=== PATIENT | male | born 1980 | race Caucasian/White ===

== ENCOUNTER 2018-12-04 01:48 | Emergency (ER) | payer OTHER ==
[2018-12-04 02:34] VITALS: BMI 22.4
--- NOTE | 2018-12-04 02:35 | PDOC ---
History of Present Illness - General Chief Complaint: Pain, Acute Stated Complaint: R HIP PAIN Time Seen by Provider: 12/04/18 02:34 History Source: Patient Exam Limitations: No Limitations - History of Present Illness Initial Comments: 12/04/18 03:29 CHIEF COMPLAINT: Lower back pain HISTORY OF PRESENT ILLNESS: 38-year-old male denies medical history presents emergency department with atraumatic right sided lower back pain for the past 3 days. Patient reports he was walking when he felt a sharp sensation his right lower back. Denies any radiation of the pain or neurosensory deficits. Denies any incontinence of bladder or bowel or any urinary retention. Denies saddle anesthesia, foot drop, history of cancer or IV drug use. REVIEW OF SYSTEMS: GENERAL: Afebrile, denies any weakness RESPIRATORY: No cough, wheezing, or hemoptysis. CARDIAC: No chest pain or shortness of breath MUSCULOSKELETAL: Pain to generalized lower back. No point tenderness. Pain worse on right than left. SKIN : No erythema, no bruising, no deformity. GI/: Denies any abdominal pain, no urinary difficulty, incontinence or urinary retention. RECTAL: Denies any difficulty this A.m. NEUROLOGICAL: Denies any numbness or tingling. No neurosensory deficits. PHYSICAL EXAM: GENERAL: The patient is awake, alert, and fully oriented, in no acute distress. RESPIRATORY: Lungs clear bilaterally, no rhonchi wheezes or crackles CARDIAC: S1-S2 audible, no murmur rub or gallop MUSCULOSKELETAL: Pain to generalized lower back, nonradiating, no tingling or sensory deficit. Less than 2 second cap refill, +2 pedal pulses. No spinal point tenderness. Normal reflexive and no deficits to sensation or strength. GI/: Abdomen soft, nontender, nondistended. No rebound tenderness. No masses palpable. RECTAL: Deferred patient with no neurological findings SKIN: Warm, Dry, normal turgor, no erythema, no edema no bruising. 12/05/18 04:37 Past History - Past Medical History Allergies/Adverse Reactions: Allergies Allergy/AdvReac Type Severity Reaction Status Date / Time No Known Allergies Allergy Verified 12/04/18 02:32 - Suicide/Smoking/Psychosocial Hx Smoking History: Current every day smoker Have you smoked in the past 12 months: Yes Information on smoking cessation initiated: No Hx Alcohol Use: Yes Drug/Substance Use Hx: Yes (Heroin) *Physical Exam - Vital Signs Last Vital Signs Temp Pulse Resp BP Pulse Ox 99 F 74 17 140/86 98 12/04/18 01:48 12/04/18 01:48 12/04/18 01:48 12/04/18 01:48 12/04/18 01:48 Medical Decision Making - Medical Decision Making 12/04/18 03:32 A/P: 38-year-old male with atraumatic right-sided lower back pain No point tenderness present No bony tenderness, crepitus or step-offs present No muscle spasms noted Able to perform straight leg raises Ambulatory with steady gait Neurovascular intact Given absence of urinary symptoms this is likely lumbago of the right lower back. Patient has no neurologic findings and denies history of drug abuse therefore spinal abscess is less likely. Toradol 60 mg IM now Reassess 12/04/18 04:46 Patient reports improvement of back pain. I will discharge home to follow-up with his primary doctor as needed. *DC/Admit/Observation/Transfer Diagnosis at time of Disposition: Lower back pain Qualifiers: Chronicity: acute Back pain laterality: right Sciatica presence: without sciatica Qualified Code(s): M54.5 - Low back pain - Discharge Dispostion Disposition: HOME Condition at time of disposition: Fair Decision to Admit order: No - Referrals - Patient Instructions Additional Instructions: REST. Take Tylenol or Motrin as needed for pain. Follow manufacturers instructions for appropriate dosage. Warm moist heat applied to your back may help alleviate pain. Return to emergency department for discoloration of the foot, numbness or tingling to the foot, worsening pain, or any other concerns. Thank you very much for choosing us to provide your emergent healthcare needs. - Post Discharge Activity
--- NOTE | 2018-12-04 02:44 | PDOC ---
*Physical Exam - Vital Signs Last Vital Signs Temp Pulse Resp BP Pulse Ox 99 F 74 17 140/86 98 12/04/18 01:48 12/04/18 01:48 12/04/18 01:48 12/04/18 01:48 12/04/18 01:48 Medical Decision Making - Medical Decision Making 12/04/18 02:44 Patient seen by the advanced practice provider under my direct supervision. Ancillary testing reviewed as necessary. I agree with plan as outlined by the advanced practice provider. *DC/Admit/Observation/Transfer Diagnosis at time of Disposition: Lower back pain Qualifiers: Chronicity: acute Back pain laterality: right Sciatica presence: without sciatica Qualified Code(s): M54.5 - Low back pain - Discharge Dispostion Disposition: HOME Condition at time of disposition: Fair - Referrals - Patient Instructions Additional Instructions: REST. Take Tylenol or Motrin as needed for pain. Follow manufacturers instructions for appropriate dosage. Warm moist heat applied to your back may help alleviate pain. Return to emergency department for discoloration of the foot, numbness or tingling to the foot, worsening pain, or any other concerns. Thank you very much for choosing us to provide your emergent healthcare needs. - Post Discharge Activity
[2018-12-04] MEDS ORDERED: KETOROLAC TROMETHAMINE 60 MG/2 ML VIAL IM ONE (03:28)
[2018-12-04] MEDS ORDERED: KETOROLAC TROMETHAMINE 60 MG/2 ML VIAL ONE (03:53)
[2018-12-04 06:43] VITALS: TEMP 98.2
[2018-12-04 08:45] VITALS: BP 133/60; PULSE 66
== END 2018-12-04 08:44 | disposition home or self-care (01) ==
LOC: JER 01:48
PROC: 3E0233Z Introduction of Anti-inflammatory into Muscle, Percutaneous Approach (ICD-10-PCS; principal; 2018-12-04)
DX: M54.5 Low back pain (principal)
CPT/HCPCS: 99282-25

== ENCOUNTER 2018-12-09 12:05 | Emergency (ER) | payer OTHER ==
[2018-12-09 12:31] VITALS: BMI 20.9
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
[2018-12-09] MEDS ORDERED: IBUPROFEN 600 MG TABLET (FP) PO ONE ×2 (14:11→14:17)
[2018-12-09 16:44] VITALS: BP 125/68; PULSE 68; TEMP 97.9
== END 2018-12-09 16:55 | disposition short-term general hospital (02) ==
LOC: JER 12:05
DX: S62.606D Fracture of unspecified phalanx of right little finger, subsequent encounter for fracture with routine healing (principal); Y04.0XXD Assault by unarmed brawl or fight, subsequent encounter; I10 Essential (primary) hypertension; F11.10 Opioid abuse, uncomplicated; F10.10 Alcohol abuse, uncomplicated; F31.9 Bipolar disorder, unspecified; F43.10 Post-traumatic stress disorder, unspecified; B18.2 Chronic viral hepatitis C; Z98.890 Other specified postprocedural states; Z59.0 Homelessness
CPT/HCPCS: 73110-TC-RT-FY; 73130-TC-RT-FY; 73523-TC-FY; 99282-25

== ENCOUNTER 2018-12-25 01:22 | Inpatient (IN) | payer OTHER ==
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
[2018-12-25] MEDS ORDERED: guaiFENesin 200 MG/10 ML 10 ML UNIT-DOSE CUPS PO PRN (03:15)
[2018-12-25] MEDS ORDERED: IBUPROFEN 400 MG TABLET (FP) PO PRN (03:15)
[2018-12-25] MEDS ORDERED: cloNIDine HCL 0.1 MG TABLET PO PRN (03:15)
[2018-12-25] MEDS ORDERED: MAGNESIUM CITRATE 300 ML BOTTLE PO PRN (03:15)
[2018-12-25] MEDS ORDERED: NALOXONE HCL 0.4 MG/ML VIAL IM PRN (03:15)
[2018-12-25] MEDS ORDERED: ONDANSETRON *ODT* 4 MG TABLET SL PRN (03:15)
[2018-12-25] MEDS ORDERED: MAG HYDROX/AL HYDROX/SIMETH 30 ML UNIT-DOSE CUP PO PRN (03:15)
[2018-12-25] MEDS ORDERED: BISMUTH SUBSALICYLATE 524 MG/30 ML UD PO PRN (03:15)
[2018-12-25] MEDS ORDERED: hydrOXYzine PAMOATE 25 MG CAPSULE (FP) PO PRN (03:15)
[2018-12-25] MEDS ORDERED: DICYCLOMINE HCL 10 MG CAPSULE PO PRN (03:15)
[2018-12-25] MEDS ORDERED: MAGNESIUM HYDROX 2400MG/30ML ORAL SUSPENSION 30 ML CUP PO PRN (03:15)
[2018-12-25] MEDS ORDERED: P-EPHED 60MG/TRIPROLIDI 2.5MG TABLET PO PRN (03:15)
[2018-12-25] MEDS ORDERED: MENTHOL/PHENOL 1 EACH UD MM PRN (03:15)
[2018-12-25] MEDS ORDERED: MELATONIN 5 MG TABLETS PO PRN (03:15)
[2018-12-25] MEDS ORDERED: METHOCARBAMOL 500 MG TABLET PO PRN (03:15)
[2018-12-25] MEDS ORDERED: NICOTINE POLACRILEX 2 MG GUM BUC PRN (03:15)
[2018-12-25] MEDS ORDERED: ACETAMINOPHEN 325 MG TABLET (FP) PO PRN ×2 (03:15)
[2018-12-25] MEDS ORDERED: METHADONE HCL 10 MG TABLET (FOR DETOX USE ONLY) PO ONE ×2 (07:15→10:00)
[2018-12-25] MEDS ORDERED: PRENATAL VITAMINS W/ FOLIC ACID TABLET (FP) PO SCH (10:00)
[2018-12-25] MEDS ORDERED: NICOTINE 21 MG/24 HOURS TOPICAL PATCH TD SCH (10:00)
[2018-12-25 10:28] LABS: HEMATOCRIT 41.7 % (35.4-49); HEMOGLOBIN 13.8 GM/dL (11.7-16.9); MCH 29.2 pg (25.7-33.7); MEAN CELL VOLUME 88.6 fl (80-96); MEAN PLT VOLUME 7.9 fl (7.5-11.1); RBC 4.71 M/mm3 (4.00-5.60); RDW 15.1 % (11.9-15.9); WHITE BLOOD COUNT 13.3 K/mm3 (4.0-10.0)
[2018-12-25 10:34] LABS: ALBUMIN 3.2 g/dl (3.4-5.0); BILIRUBIN,TOTAL 1.1 mg/dL (0.2-1); CALCIUM 8.9 mg/dL (8.5-10.1); CREATININE 0.8 mg/dL (0.55-1.3); POTASSIUM 3.8 mmol/L (3.5-5.1); TOT PROT 7.3 g/dl (6.4-8.2)
[2018-12-25 10:41] LABS: PLATELET COUNT 435 K/MM3 (134-434)
--- NOTE | 2018-12-25 12:21 | PN ---
[facility] COWS - Scale Resting Pulse: 1= [place] 81-100 Sweatin=Flushed/Facial Moisture Restless Observation: 1= Difficult to Sit Still Pupil Size: 0= Normal to Room Light Bone or Joint Aches: 2= Severe Diffuse Aches Runny Nose/ Eye Tearin= Runny Nose/Eyes GI Upset > 30mins: 1= Stomach Cramp Tremor Observation of Outstretched Hands: 1= Tremor [place], Not Seen Yawning Observation: 1= 1-2x During Session Anxiety or Irritability: 1=Feels Anxious/Irritable Goose Flesh Skin: 0=Smooth Skin COWS Score: 12 [facility] Progress Note (SOAP) Subjective: body aches sweats shakes interrupted sleep irritable restless Objective: 12/25/18 12:20 Vital Signs Temperature 98.6 F 12/25/18 09:44 Pulse Rate 82 12/25/18 09:44 Respiratory Rate 18 12/25/18 09:44 Blood Pressure 138/72 12/25/18 09:44 O2 Sat by Pulse Oximetry (%) Laboratory Tests 12/25/18 12/25/18 12/25/18 07:00 07:00 07:00 WBC 13.3 H RBC 4.71 Hgb 13.8 Hct 41.7 MCV 88.6 MCH 29.2 MCHC 33.0 RDW 15.1 Plt Count 435 H MPV 7.9 Sodium 136 Potassium 3.8 Chloride 101 Carbon Dioxide 29 Anion Gap 7 L BUN 13.0 Creatinine 0.8 Est GFR (CKD-EPI)AfAm 129.51 Est GFR (CKD-EPI)NonAf 111.74 Random Glucose 99 Calcium 8.9 Total Bilirubin 1.1 H AST 36 ALT 39 Alkaline Phosphatase 167 H Total Protein 7.3 Albumin 3.2 L RPR Titer Nonreactive labs noted aaox3 ambulating no acute distress Assessment: 12/25/18 12:20 withdrawal sx Plan: continue detox increase fluids
--- NOTE | 2018-12-25 12:38 | CONSULT ---
[facility] Psychiatric Consult - Data Date of interview: 12/25/18 Identifying data: Ms Cormier is a 38 years old Black male seeking detox treatment for alcohol, opioid and cannabis Substance Abuse History: Reportedly using alcohol, heroin and marijuana. Refer to addiction counselor's summary for further information Medical History: Reportedly significant for GERD, history of treatment for hepatitis C,and orthosurgery for right hip in 2011 and fracture right hand in July 2018 Psychiatric History: Patient was approached at bedside while sleeping . 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
--- NOTE | 2018-12-25 14:14 | CONSULT ---
[facility] Psychiatric Consult - Data Date of interview: 12/25/18 Admission source: Self-referred Identifying data: Ms Cormier is a 38 years old male, father of a 13 years old daughter, unemployed with no source of income, homeless seeking detox treatment for alcohol, opioid and cannabis Substance Abuse History: Reports history of alcohol, heroin and marijuana. Refer to addiction counselor's summary for further information Medical History: Significant for GERD, history of treatment for hepatitis C, and orthosurgery for fracture of femoral head right hip in 2011 and fracture right hand in July 2018. Smokes cigarettes 1 ppd Psychiatric History: Denies history of previous psychic treatment. However, reports feeling anxious, irritable and sleeping poorly Physical/Sexual Abuse/Trauma History: Denies history of emotional, physical or sexual abuse as well as DV relationship. Mental Status Exam - Mental Status Exam Alert and Oriented to: Time, Place, Person Cognitive Function: Fair Patient Appearance: Disheveled Mood: Irritable Affect: Appropriate Patient Behavior: Cooperative (superficially) Speech Pattern: Clear Voice Loudness: Normal Thought Process: Intact, Goal Oriented Thought Disorder: Not Present Hallucinations: Denies Suicidal Ideation: Denies Homicidal Ideation: Denies Insight/Judgement: Poor Sleep: Poorly Appetite: Good Muscle strength/Tone: Normal Gait/Station: Normal Psychiatric Findings - Problem List ([place] 1, 2,3) (1) Substance induced mood disorder Current Visit: Yes Status: Acute (2) Substance-induced sleep disorder Current Visit: Yes Status: Acute (3) Alcohol dependence with intoxication, uncomplicated Current Visit: Yes Status: Acute (4) Opioid dependence with withdrawal Current Visit: Yes Status: Acute (5) Cannabis dependence, uncomplicated Current Visit: Yes Status: Acute (6) Nicotine dependence Current Visit: No Status: Chronic Qualifiers: Nicotine product type: cigarettes Substance use status: uncomplicated Qualified Code(s): F17.210 - Nicotine dependence, cigarettes, uncomplicated (7) Lower back pain Current Visit: No Status: Chronic Qualifiers: Chronicity: acute Back pain laterality: right Sciatica presence: without sciatica Qualified Code(s): M54.5 - Low back pain (8) GERD (gastroesophageal reflux disease) Current Visit: Yes Status: Chronic (9) Hepatitis C Current Visit: Yes Status: Resolved - Initial Treatment Plan Initial Treatment Plan: 1) Start Melatonin 5 mg po HS prn for insomnia. 2) Continue inpatient detoxification
--- NOTE | 2018-12-25 15:24 | EKG ---
Test Reason : Blood Pressure : / mmHG Vent. Rate : 064 BPM Atrial Rate : 064 BPM P-R Int : 156 ms QRS Dur : 086 ms QT Int : 388 ms P-R-T Axes : 072 060 045 degrees QTc Int : 400 ms NORMAL SINUS RHYTHM EARLY REPOLARIZATION NORMAL ECG NO PREVIOUS ECGS AVAILABLE Confirmed by MANISHA NASCIMENTO, LUIS ([id number]) on 12/25/2018 3:23:44 PM Referred By: Confirmed By:LUIS DYER MD
[2018-12-25 17:17] VITALS: BP 154/87; PULSE 90; TEMP 98.1
[2018-12-25] MEDS ORDERED: THIAMINE HCL 100 MG TABLET (FP) PO SCH (22:00)
[2018-12-26] MEDS ORDERED: METHADONE HCL 5 MG TABLET (FOR DETOX USE ONLY) PO ONE (10:00)
[2018-12-27] MEDS ORDERED: METHADONE HCL 10 MG TABLET (FOR DETOX USE ONLY) PO ONE (10:00)
[2018-12-28] MEDS ORDERED: METHADONE HCL 5 MG TABLET (FOR DETOX USE ONLY) PO ONE (06:00)
== END 2018-12-25 18:55 | disposition left against medical advice (07) | DRG 770 ==
LOC: YASAS 01:22 → Y6N 03:25
PROVIDERS: ADMIT Surgery; ATTEND Surgery
PROC: HZ2ZZZZ Detoxification Services for Substance Abuse Treatment (ICD-10-PCS; principal; 2018-12-25)
DX: F11.23 Opioid dependence with withdrawal (principal); F10.230 Alcohol dependence with withdrawal, uncomplicated; F12.20 Cannabis dependence, uncomplicated; F17.210 Nicotine dependence, cigarettes, uncomplicated; F19.282 Other psychoactive substance dependence with psychoactive substance-induced sleep disorder; F19.24 Other psychoactive substance dependence with psychoactive substance-induced mood disorder; F32.9 Major depressive disorder, single episode, unspecified; F90.9 Attention-deficit hyperactivity disorder, unspecified type; F31.9 Bipolar disorder, unspecified; K21.9 Gastro-esophageal reflux disease without esophagitis; M54.5 Low back pain; B18.2 Chronic viral hepatitis C; R40.0 Somnolence; Z91.81 History of falling; Z59.0 Homelessness
CPT/HCPCS: 36415; 80053; 85027; 86480; 86593; 93005; 93010